=== PATIENT | male | born 1945 | race Caucasian/White ===

== ENCOUNTER → 2016-09-26 | Outpatient (CLI) | payer MEDICARE ==
[~2016-09-26] MED LIST: AUGMENTIN1 TA2 PO; BENADRYL 25MG C25 MG PO; CIPRODEX 0.3%-7.5 ML OT; HALDOL 1MG. TABL1 MG PO; HUMALOG MIX 75/10 ML SC; HYDROCHLOROTH12.5 M1 PO; LISINOPRIL40 MG PO; LOPRESSOR 50 MG50 MG PO; METFORMIN1000 MG PO; METOPROLOL50 MG PO; NAFCILLIN2 GM IV; NORVASC 10MG. T10 MG PO; TYLENOL ES500 MG PO; VITAMIN D32000 I2 PO; ZOCOR20 MG PO; ZYPREXA15 MG PO; [UNRECOGNIZED DRUG - OTHER] PO
[2016-09-27 15:27] LABS: URINE BILIRUBIN - DIPSTICK NEGATIVE (NEG); URINE BLOOD TRACE-LYSED (NEG)
[2016-09-27 16:27] LABS: URINE SQUAMOUS CELLS OCC #/hpf (OCC)
== END ==
LOC: LAB 15:19
PROVIDERS: Emergency Medicine
DX: N39.0 Urinary tract infection, site not specified (principal)